=== PATIENT | male | born 1955 | race Hispanic/Latino ===

== ENCOUNTER 2018-07-04 05:51 | Emergency (ER) | payer OTHER ==
[~2018-07-04] VITALS: Ht 175.3 cm; Wt 115.7 kg
[2018-07-04] MEDS ORDERED: MECLIZINE HCL 12.5 MG TAB PO ONE (06:00)
[2018-07-04] MEDS ORDERED: SODIUM CHLORIDE 0.9% 1000ML 1,000 ML IV ONE (06:00)
[2018-07-04 06:09] LABS: BASOPHILS % 0.2 % (0.0-1.0); EOSINOPHILS # (AUTO) 0.1 (0.0-0.4); EOSINOPHILS % 1.3 % (0.0-6.0); HEMATOCRIT 39.1 % (38.2-49.6); HEMOGLOBIN 13.2 g/dL (14.0-18.0); LYMPHOCYTES # (AUTO) 1.7 (1.0-3.2); LYMPHOCYTES % 32.3 % (18.0-39.1); MEAN CORPUSCULAR HEMOGLOBIN 29.6 pg (28-32); MEAN CORPUSCULAR HGB CONC 33.8 g/dL (31-35); MEAN CORPUSCULAR VOLUME 87.7 fL (81-99); MONOCYTES # (AUTO) 0.7 (0.2-0.8); MONOCYTES % 13.7 % (4.4-11.3); NEUTROPHILS # (AUTO) 2.8 (2.1-6.9); NEUTROPHILS % 51.9 % (38.7-80.0); PLATELET COUNT 147 x10e3/uL (140-360); RED BLOOD COUNT 4.46 x10e6/uL (4.3-5.7); RED CELL DISTRIBUTION WIDTH 12.7 % (11.7-14.4)
[2018-07-04 06:28] LABS: ALANINE AMINOTRANSFERASE 22 IU/L (0-55); ALBUMIN/GLOBULIN RATIO 1.4 (0.8-2.0); ALKALINE PHOSPHATASE 56 IU/L (40-150); ANION GAP 12.8 mmol/L (8-16); BLOOD UREA NITROGEN 11 mg/dL (7-26); BUN/CREATININE RATIO 13 (6-25); CALCIUM 9.4 mg/dL (8.4-10.2); CARBON DIOXIDE 26 mmol/L (22-29); CHLORIDE 107 mmol/L (98-107); CREATINE KINASE 157 IU/L (30-200); CREATININE, SERUM 0.88 mg/dL (0.72-1.25); EST GLOMERULAR FILTRATION RATE > 60 ML/MIN (60-); GLUCOSE 176 mg/dL (74-118); POTASSIUM 3.8 mmol/L (3.5-5.1); SODIUM 142 mmol/L (136-145)
--- NOTE | 2018-07-04 07:09 | Diagnostic Imaging Report ---
History: Dizziness Comparison studies: None Technique: Axial images were obtained from the skull base to the vertex. Coronal and sagittal reconstructions obtained from the axial data. Dose modulation, iterative reconstruction, and/or weight based adjustment of the mA/kV was utilized to reduce the radiation dose to as low as reasonably achievable. Findings: Scalp/skull: No abnormalities. No fractures, blastic or lytic lesions. Extra-axial spaces: No masses. No fluid collections. Brain sulci: Appropriate for age. Ventricles: Normal in size and configuration. No hydrocephalus. Parenchyma: No abnormal densities. No masses, hemorrhage, acute or chronic cortical vascular insults. Sellar/suprasellar region: No abnormalities Craniocervical junction: Patent foramen magnum. No Chiari one malformation. IMPRESSION: No abnormalities . Signed by: DR Jamie Guaman M.D. on 07/04/2018 7:06 AM
--- NOTE | 2018-07-04 07:36 | Diagnostic Imaging Report ---
EXAMINATION: CHEST SINGLE (PORTABLE) INDICATION: \S\dizzy \[id number] \S\[id number] \S\Y COMPARISON: None FINDINGS: AP view TUBES and LINES: None. LUNGS: Lungs are well inflated. Lungs are clear. There is no evidence of pneumonia or pulmonary edema. PLEURA: No pleural effusion or pneumothorax. HEART AND MEDIASTINUM: The cardiomediastinal silhouette is unremarkable. BONES AND SOFT TISSUES: No acute osseous lesion. Soft tissues are unremarkable. UPPER ABDOMEN: No free air under the diaphragm. IMPRESSION: No acute thoracic abnormality. Signed by: DR. Timoteo Wheeler MD on 07/04/2018 7:32 AM
== END 2018-07-04 08:10 | disposition home or self-care (01) ==
LOC: ER 05:51
DX: R42 Dizziness and giddiness (principal); R11.0 Nausea; E78.5 Hyperlipidemia, unspecified
CPT/HCPCS: 36415; 70450; 71045; 80053; 82550; 82553; 84484; 85025; 93005; 99284

== ENCOUNTER 2019-05-01 11:12 | Emergency (ER) | payer OTHER ==
[~2019-05-01] VITALS: Ht 175.3 cm; Wt 115.7 kg
[2019-05-01] MEDS ORDERED: SODIUM CHLORIDE 0.9% 1000ML 1,000 ML IV SCH (11:30)
[2019-05-01] MEDS ORDERED: ASPIRIN 81 MG CHEW TAB PO ONE (11:30)
[2019-05-01] MEDS ORDERED: DIPHENHYDRAMINE HCL INJ 50 MG/ML VIAL IV ONE (12:00)
[2019-05-01] MEDS ORDERED: KETOROLAC TROMETHAMINE 30 MG/ML VIAL IV ONE (12:00)
[2019-05-01] MEDS ORDERED: METOCLOPRAMIDE HCL 10 MG/2ML VIAL IV ONE (12:00)
[2019-05-01 12:01] LABS: BASOPHILS % 0.4 % (0.0-1.0); EOSINOPHILS # (AUTO) 0.1 (0.0-0.4); EOSINOPHILS % 1.3 % (0.0-6.0); HEMOGLOBIN 13.9 g/dL (14.0-18.0); LYMPHOCYTES % 17.7 % (18.0-39.1); MEAN CORPUSCULAR HEMOGLOBIN 29.2 pg (28-32); MEAN CORPUSCULAR HGB CONC 33.1 g/dL (31-35); MEAN CORPUSCULAR VOLUME 88.2 fL (81-99); MONOCYTES # (AUTO) 0.6 (0.2-0.8); MONOCYTES % 10.6 % (4.4-11.3); NEUTROPHILS # (AUTO) 3.9 (2.1-6.9); NEUTROPHILS % 69.5 % (38.7-80.0); PLATELET COUNT 154 x10e3/uL (140-360); RED BLOOD COUNT 4.76 x10e6/uL (4.3-5.7); RED CELL DISTRIBUTION WIDTH 13.2 % (11.7-14.4)
[2019-05-01 12:11] LABS: ALANINE AMINOTRANSFERASE 19 IU/L (0-55); ALBUMIN/GLOBULIN RATIO 1.3 (0.8-2.0); ALKALINE PHOSPHATASE 49 IU/L (40-150); ANION GAP 15.1 mmol/L (8-16); BLOOD UREA NITROGEN 14 mg/dL (7-26); BUN/CREATININE RATIO 16 (6-25); CALCIUM 9.6 mg/dL (8.4-10.2); CARBON DIOXIDE 25 mmol/L (22-29); CHLORIDE 104 mmol/L (98-107); CREATINE KINASE 104 IU/L (30-200); CREATININE, SERUM 0.89 mg/dL (0.72-1.25); EST GLOMERULAR FILTRATION RATE > 60 ML/MIN (60-); GLUCOSE 134 mg/dL (74-118); POTASSIUM 4.1 mmol/L (3.5-5.1); SODIUM 140 mmol/L (136-145)
--- NOTE | 2019-05-01 13:28 | Diagnostic Imaging Report ---
History:Dizziness, headache, Comparison studies:None Technique: Axial images were obtained from the thoracic inlet. 3-D reconstructions and maximum intensity projection reformats were performed. Coronal and sagittal images reconstructed from the axial data. Intravenous contrast: 100 cc of Omnipaque 300. Dose modulation, iterative reconstruction, and/or weight based adjustment of the mA/kV was utilized to reduce the radiation dose to as low as reasonably achievable. Findings: Percentage of stenosis will be based on the NASCET criteria Aortic arch and major vessels: Patent. Nonstenotic atherosclerotic changes are. Common carotid arteries: Patent. No abnormalities. Right internal carotid artery: Patent. Nonstenotic calcified atherosclerotic plaque at the bulb and carotid siphon. 3 mm inferiorly projecting at the P-comm segment. Left internal carotid artery: Patent. Nonstenotic calcified and noncalcified atherosclerotic plaque at the bulb. Nonstenotic calcified plaque at the carotid siphon. Right vertebral artery: Patent and diminutive. Left vertebral artery: Patent dominant. Basilar artery: Patent. No abnormalities. Posterior cerebral arteries: Patent. No abnormalities. origin on the left side with hypoplastic P 1 segments. Anatomical variants: Acom: Patent . Pcoms: Patent left. Nonvisualized right. Vertebral arteries: Dominant left IMPRESSION: Cervical CTA: 1. No acute vascular abnormality. 2. Atherosclerotic changes without significant stenosis. Intracranial CTA: 1. No acute vascular abnormality. 2. Atherosclerotic changes without significant stenosis. 3. 3 mm inferiorly projecting aneurysm from the right P-comm ICA segment. Signed by: DR Jamie Guaman M.D. on 05/01/2019 1:24 PM
[2019-05-01 13:52] VITALS: BP 139/55
[2019-05-01] MEDS ORDERED: MECLIZINE HCL12.5 MG PO (13:53)
[2019-05-01] MEDS ORDERED: IOPAMIDOL 370 MG/ML 200 ML INFUS..BTL INJ ONE (17:47)
[2019-05-01] MEDS ORDERED: SODIUM CHLORIDE 0.9% 100 ML 100 ML ONE (17:47)
== END 2019-05-01 14:05 | disposition home or self-care (01) ==
LOC: ER 11:12
DX: R53.1 Weakness (principal); R42 Dizziness and giddiness; H81.13 Benign paroxysmal vertigo, bilateral
CPT/HCPCS: 36415; 70496; 70498; 80053; 82550; 82553; 84484; 85025; 93005; 99283; J1200; J1885; J2765; J7030; Q9967

== ENCOUNTER 2019-09-09 11:22 | Emergency (ER) | payer OTHER ==
[~2019-09-09] VITALS: Ht 175.3 cm; Wt 115.7 kg
[~2019-09-09 11:22] MED LIST: MECLIZINE HCL12.5 MG PO
[2019-09-09] MEDS ORDERED: IBUPROFEN 600 MG TAB PO STA (11:23)
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
[2019-09-09] MEDS ORDERED: TIZANIDINE HCL4 MG PO (13:48)
[2019-09-09 13:52] VITALS: BP 164/79
== END 2019-09-09 13:56 | disposition home or self-care (01) ==
LOC: ER 11:22
DX: S16.1XXA Strain of muscle, fascia and tendon at neck level, initial encounter (principal); S33.5XXA Sprain of ligaments of lumbar spine, initial encounter; V43.52XA Car driver injured in collision with other type car in traffic accident, initial encounter; Y92.488 Other paved roadways as the place of occurrence of the external cause; I10 Essential (primary) hypertension; E11.9 Type 2 diabetes mellitus without complications; E78.5 Hyperlipidemia, unspecified
CPT/HCPCS: 72050; 72110; 99283

== ENCOUNTER → 2019-11-11 | Outpatient (CLI) | payer OTHER ==
[~2019-11-11] MED LIST changes: +IOPAMIDOL 370 MG/ML 200 ML INFUS..BTL INJ ONE; +SODIUM CHLORIDE 0.9% 100 ML ONE; +TIZANIDINE HCL4 MG PO
[2019-11-11 11:40] LABS: BLOOD UREA NITROGEN 13 mg/dL (7-26); BUN/CREATININE RATIO 15 (6-25); CREATININE, SERUM 0.88 mg/dL (0.72-1.25); EST GLOMERULAR FILTRATION RATE > 60 ML/MIN (60-)
--- NOTE | 2019-11-12 07:25 | Diagnostic Imaging Report ---
History:Follow-up cerebral aneurysm, Comparison studies:CTA head and neck 05/01/2019 Technique: Axial images were obtained from the thoracic inlet. 3-D reconstructions and maximum intensity projection reformats were performed. Coronal and sagittal images reconstructed from the axial data. Intravenous contrast: 100 cc of Isovue 370. Dose modulation, iterative reconstruction, and/or weight based adjustment of the mA/kV was utilized to reduce the radiation dose to as low as reasonably achievable. Findings: Percentage of stenosis will be based on the NASCET criteria Aortic arch and major vessels: Patent. Nonstenotic mild atherosclerotic changes. Common carotid arteries: Patent. No abnormalities. Right internal carotid artery: Patent. Nonstenotic calcified atherosclerotic plaque at the bulb and carotid siphon. Stable 3 mm inferiorly projecting saccular aneurysm at the P-comm segment. Left internal carotid artery: Patent. Nonstenotic calcified and noncalcified atherosclerotic plaque at the bulb. Nonstenotic calcified plaque at the carotid siphon. Right vertebral artery: Patent and diminutive. Left vertebral artery: Patent dominant. Basilar artery: Patent. No abnormalities. Posterior cerebral arteries: Patent. No abnormalities. origin on the left side with hypoplastic left P 1 segment. Anatomical variants: Acom: Patent . Pcoms: Patent left. Nonvisualized right. Vertebral arteries: Dominant left IMPRESSION: Cervical CTA: 1. No acute vascular abnormality or change from previous examination. 2. Atherosclerotic changes without significant stenosis. Intracranial CTA: 1. No acute vascular abnormality or change from previous examination. 2. Atherosclerotic changes without significant stenosis. 3. Stable 3 mm inferiorly projecting aneurysm from the right P-comm ICA segment. Signed by: DR Jamie Guaman M.D. on 11/12/2019 7:22 AM
== END ==
LOC: CT 10:35
PROVIDERS: ATTEND Student in an Organized Health Care Education/Training Program
DX: I67.1 Cerebral aneurysm, nonruptured (principal)
CPT/HCPCS: 36415; 70496; 70498; 82565; 84520; J7050; Q9967

== ENCOUNTER → 2020-05-08 | Outpatient (CLI) | payer MEDICARE ==
[2020-05-08 16:08] LABS: BLOOD UREA NITROGEN 17 mg/dL (7-26); BUN/CREATININE RATIO 21 (6-25); CREATININE, SERUM 0.82 mg/dL (0.72-1.25); EST GLOMERULAR FILTRATION RATE > 60 ML/MIN (60-)
--- NOTE | 2020-05-09 07:28 | Diagnostic Imaging Report ---
Exams: Neck and intracranial CTAs History:Cerebral aneurysm Comparison studies: Neck and intracranial CTA 11/11/2019 and 05/01/2019 Technique: Axial images were obtained from the vertex through the thoracic L upon demonstration of IV contrast. Multiplanar MIP as well as 3-D volume rendered images of the [place] and neck circulation reformatted from the axial source data. Dose modulation, iterative reconstruction, and/or weight based adjustment of the mA/kV was utilized to reduce the radiation dose to as low as reasonably achievable. Intravenous contrast: 100 cc of Isovue-370. Findings: Neck CTA: If present, stenosis is calculated utilizing the NASCET method which calculates the degree of stenosis with reference to the normal lumen of the carotid artery distal to the stenosis. Aortic arch and major vessels: Mild scattered calcified plaque in the aortic arch, origins of the subclavian artery, origin of the left common carotid artery and origin of the right brachycephalic trunk without significant stenosis. Common carotid arteries: Patent, no stenosis. Carotid bulbs: Patent, no (0%) stenosis. Nonstenotic calcified plaque just below the bifurcation on the left and in the proximal ICA segment on the right. Internal carotid arteries: Patent with mild calcified plaque near the origin on the right. No other abnormalities Vertebral arteries: Patent, no abnormalities. Intracranial CTA: Anterior circulation: Internal carotid arteries: Patent with calcified plaque in the cavernous and paraophthalmic segments without significant stenosis. Unchanged inferiorly projecting wide-neck 3 mm saccular aneurysm in the right communicating segment. Anterior cerebral arteries: Patent, no proximal branch occlusion or stenosis. Middle cerebral arteries: Patent, no proximal branch occlusion or stenosis. Posterior circulation: Vertebral arteries: Patent, no abnormalities. Basilar artery: Patent, no abnormalities. Posterior cerebral arteries: Patent, no proximal branch occlusion or stenosis. Congenitally hypoplastic left P1 segment with -type MEDICAL ACCOUNTANT origin. Anatomical variants: Acom: Patent. Pcoms: Left -type MEDICAL ACCOUNTANT origin. Not visualized on the right. Vertebral arteries: Left is dominant. Incidental findings: Unchanged nonspecific small punctate calcifications in the left masseter muscle. IMPRESSION: Neck CTA: 1. No changes from the prior neck CTA of 11/11/2019. 2. Mild scattered atherosclerosis without significant stenosis. No (0%) stenosis of the carotid bulbs. Intracranial CTA: 1. No changes from the prior intracranial CTA of 11/11/2019. 2. Unchanged right ICA communicating segment 3 mm saccular aneurysm. 3. No major arterial branch occlusion or significant stenosis. Signed by: Dr. Sivakumar Phoenix M.D. on 05/09/2020 7:25 AM
--- NOTE | 2020-05-09 07:28 | Diagnostic Imaging Report ---
Exams: Neck and intracranial CTAs History:Cerebral aneurysm Comparison studies: Neck and intracranial CTA 11/11/2019 and 05/01/2019 Technique: Axial images were obtained from the vertex through the thoracic L upon demonstration of IV contrast. Multiplanar MIP as well as 3-D volume rendered images of the [place] and neck circulation reformatted from the axial source data. Dose modulation, iterative reconstruction, and/or weight based adjustment of the mA/kV was utilized to reduce the radiation dose to as low as reasonably achievable. Intravenous contrast: 100 cc of Isovue-370. Findings: Neck CTA: If present, stenosis is calculated utilizing the NASCET method which calculates the degree of stenosis with reference to the normal lumen of the carotid artery distal to the stenosis. Aortic arch and major vessels: Mild scattered calcified plaque in the aortic arch, origins of the subclavian artery, origin of the left common carotid artery and origin of the right brachycephalic trunk without significant stenosis. Common carotid arteries: Patent, no stenosis. Carotid bulbs: Patent, no (0%) stenosis. Nonstenotic calcified plaque just below the bifurcation on the left and in the proximal ICA segment on the right. Internal carotid arteries: Patent with mild calcified plaque near the origin on the right. No other abnormalities Vertebral arteries: Patent, no abnormalities. Intracranial CTA: Anterior circulation: Internal carotid arteries: Patent with calcified plaque in the cavernous and paraophthalmic segments without significant stenosis. Unchanged inferiorly projecting wide-neck 3 mm saccular aneurysm in the right communicating segment. Anterior cerebral arteries: Patent, no proximal branch occlusion or stenosis. Middle cerebral arteries: Patent, no proximal branch occlusion or stenosis. Posterior circulation: Vertebral arteries: Patent, no abnormalities. Basilar artery: Patent, no abnormalities. Posterior cerebral arteries: Patent, no proximal branch occlusion or stenosis. Congenitally hypoplastic left P1 segment with -type [employer] origin. Anatomical variants: Acom: Patent. Pcoms: Left -type [employer] origin. Not visualized on the right. Vertebral arteries: Left is dominant. Incidental findings: Unchanged nonspecific small punctate calcifications in the left masseter muscle. IMPRESSION: Neck CTA: 1. No changes from the prior neck CTA of 11/11/2019. 2. Mild scattered atherosclerosis without significant stenosis. No (0%) stenosis of the carotid bulbs. Intracranial CTA: 1. No changes from the prior intracranial CTA of 11/11/2019. 2. Unchanged right ICA communicating segment 3 mm saccular aneurysm. 3. No major arterial branch occlusion or significant stenosis. Signed by: Dr. Sivakumar Phoenix M.D. on 05/09/2020 7:25 AM
== END ==
LOC: CT 15:15
PROVIDERS: ATTEND Student in an Organized Health Care Education/Training Program
DX: I67.1 Cerebral aneurysm, nonruptured (principal)
CPT/HCPCS: 36415; 70496; 70498; 82565; 84520; J7050; Q9967

== ENCOUNTER → 2020-06-26 | Outpatient (CLI) | payer MEDICARE ==
[~2020-06-26] MED LIST changes: -SODIUM CHLORIDE 0.9% 100 ML ONE; +SODIUM CHLORIDE 0.9% 50ML 50 ML ONE
[2020-06-26 15:55] LABS: BLOOD UREA NITROGEN 15 mg/dL (7-26); BUN/CREATININE RATIO 18 (6-25); CREATININE, SERUM 0.85 mg/dL (0.72-1.25); EST GLOMERULAR FILTRATION RATE > 60 ML/MIN (60-)
--- NOTE | 2020-06-26 17:00 | Diagnostic Imaging Report ---
EXAM: CT Chest WITH contrast- Pulmonary Embolism Protocol INDICATION: Shortness of breath COMPARISON: Chest radiograph 07/04/2018 TECHNIQUE: Chest was scanned utilizing a multidetector helical scanner from the lung apex through the level of the diaphragm after administration of IV contrast. Thin section reconstructions were obtained with special concentration on the pulmonary arteries. Coronal and sagittal reformations were obtained. Pulmonary embolism protocol was performed. IV CONTRAST: 100 cc of Isovue 370 RADIATION DOSE: Total DLP: 530 mGy*cm Dose modulation, iterative reconstruction, and/or weight based adjustment of the mA/kV was utilized to reduce the radiation dose to as low as reasonably achievable. COMPLICATIONS: None FINDINGS: LINES/ TUBES: None. PULMONARY ARTERIES: No filling defect is identified within the pulmonary arteries to the segmental level. The subsegmental pulmonary arteries are not well opacified. Main pulmonary artery measures 2.8 cm in diameter. No right heart strain. LUNGS AND AIRWAYS: The central airways are patent. No focal consolidation or pulmonary edema. No suspicious pulmonary nodule. PLEURA: The pleural spaces are clear. HEART AND MEDIASTINUM: Mildly enlarged and heterogeneous appearance of the thyroid gland, possibly reflective of goiter. No supraclavicular, mediastinal, hilar, or axillary lymphadenopathy. The heart is at the upper limits of normal for size. No pericardial effusion. Scattered atherosclerotic calcifications involve the aorta, coronary arteries and proximal great vessels. UPPER ABDOMEN: No acute findings in the upper abdomen. BONES: No acute osseous injury. SOFT TISSUES: Unremarkable. IMPRESSION: No pulmonary embolism. No focal pneumonia or pulmonary edema. Mildly enlarged heterogeneous appearance of the thyroid gland, possibly reflective of goiter. Signed by: Julissa Dale MD on 06/26/2020 4:57 PM
== END ==
LOC: CT 14:44
PROVIDERS: ATTEND Internal Medicine Cardiovascular Disease
DX: R06.02 Shortness of breath (principal)
CPT/HCPCS: 36415; 71260; 82565; 84520; Q9967

== ENCOUNTER → 2020-07-21 | Outpatient (CLI) | payer MEDICARE, OTHER ==
[~2020-07-21] MED LIST changes: +ASPIRIN81 MG PO; +ATORVASTATIN CA20 MG PO; +DIOVAN160 MG PO; -IOPAMIDOL 370 MG/ML 200 ML INFUS..BTL INJ ONE; +PRESERVISION A1 EAC2 PO; -SODIUM CHLORIDE 0.9% 50ML 50 ML ONE
[2020-07-21 11:34] LABS: BASOPHILS % 0.4 % (0.0-1.0); EOSINOPHILS # (AUTO) 0.1 (0.0-0.4); EOSINOPHILS % 1.4 % (0.0-6.0); HEMOGLOBIN 13.3 g/dL (14.0-18.0); LYMPHOCYTES # (AUTO) 1.5 (1.0-3.2); LYMPHOCYTES % 22.3 % (18.0-39.1); MEAN CORPUSCULAR HEMOGLOBIN 28.7 pg (28-32); MEAN CORPUSCULAR HGB CONC 32.4 g/dL (31-35); MEAN CORPUSCULAR VOLUME 88.6 fL (81-99); MONOCYTES # (AUTO) 0.7 (0.2-0.8); MONOCYTES % 10.4 % (4.4-11.3); NEUTROPHILS # (AUTO) 4.5 (2.1-6.9); NEUTROPHILS % 65.1 % (38.7-80.0); PLATELET COUNT 159 x10e3/uL (140-360); RED BLOOD COUNT 4.63 x10e6/uL (4.3-5.7); RED CELL DISTRIBUTION WIDTH 13.3 % (11.7-14.4)
[2020-07-21 11:58] LABS: ALANINE AMINOTRANSFERASE 14 IU/L (0-55); ALBUMIN 4.1 g/dL (3.5-5.0); ALBUMIN/GLOBULIN RATIO 1.5 (0.8-2.0); ALKALINE PHOSPHATASE 50 IU/L (40-150); ANION GAP 12.5 mmol/L (8-16); BLOOD UREA NITROGEN 14 mg/dL (7-26); BUN/CREATININE RATIO 15 (6-25); CALCIUM 8.9 mg/dL (8.4-10.2); CARBON DIOXIDE 27 mmol/L (22-29); CHLORIDE 107 mmol/L (98-107); CREATININE, SERUM 0.94 mg/dL (0.72-1.25); EST GLOMERULAR FILTRATION RATE > 60 ML/MIN (60-); GLUCOSE 130 mg/dL (74-118); POTASSIUM 4.5 mmol/L (3.5-5.1); SODIUM 142 mmol/L (136-145)
== END ==
LOC: DX 06:11 → EDSTATUS 07-26 08:00
PROVIDERS: ATTEND Internal Medicine Cardiovascular Disease
DX: Z01.812 Encounter for preprocedural laboratory examination (principal); Z20.828 Contact with and (suspected) exposure to other viral communicable diseases; Z01.818 Encounter for other preprocedural examination; I47.2 Ventricular tachycardia
CPT/HCPCS: 36415; 80053; 85025; U0002

== ENCOUNTER → 2020-08-14 | Day surgery (SDC) | payer MEDICARE ==
[2020-08-09 11:31] LABS: BASOPHILS % 0.2 % (0.0-1.0); EOSINOPHILS # (AUTO) 0.1 (0.0-0.4); EOSINOPHILS % 1.2 % (0.0-6.0); HEMATOCRIT 39.8 % (38.2-49.6); LYMPHOCYTES # (AUTO) 1.3 (1.0-3.2); LYMPHOCYTES % 21.8 % (18.0-39.1); MEAN CORPUSCULAR HEMOGLOBIN 28.9 pg (28-32); MEAN CORPUSCULAR HGB CONC 32.7 g/dL (31-35); MEAN CORPUSCULAR VOLUME 88.4 fL (81-99); MONOCYTES # (AUTO) 0.6 (0.2-0.8); MONOCYTES % 9.5 % (4.4-11.3); PLATELET COUNT 162 x10e3/uL (140-360); RED CELL DISTRIBUTION WIDTH 13.3 % (11.7-14.4)
[2020-08-09 11:49] LABS: ALANINE AMINOTRANSFERASE 17 IU/L (0-55); ALBUMIN/GLOBULIN RATIO 1.4 (0.8-2.0); ALKALINE PHOSPHATASE 37 IU/L (40-150); ANION GAP 11.1 mmol/L (8-16); BLOOD UREA NITROGEN 12 mg/dL (7-26); BUN/CREATININE RATIO 14 (6-25); CARBON DIOXIDE 26 mmol/L (22-29); CHLORIDE 107 mmol/L (98-107); CREATININE, SERUM 0.83 mg/dL (0.72-1.25); EST GLOMERULAR FILTRATION RATE > 60 ML/MIN (60-); GLUCOSE 144 mg/dL (74-118); POTASSIUM 4.1 mmol/L (3.5-5.1); SODIUM 140 mmol/L (136-145)
[2020-08-14] VITALS (11 sets, daily range): BP systolic 132–145; BP diastolic 63–90
[~2020-08-14] VITALS: Ht 180.3 cm; Wt 111.1 kg
[~2020-08-14] MED LIST changes: +FENTANYL CITRATE/PF 100MCG/2 ML INJ ONE; +HEPARIN SOD/SOD CHLORIDE 2,000 ML ONE; +IOPAMIDOL 370 MG/ML 200 ML INFUS..BTL INJ ONE; +LIDOCAINE HCL 2% LOCAL 20 ML VIAL ONE; +MIDAZOLAM HCL 2 MG/2 ML VIAL ONE; +SODIUM CHLORIDE 0.9% 1000ML 1,000 ML ONE
--- NOTE | 2020-08-14 13:27 | Operative Report ---
DATE OF PROCEDURE: 08/14/2020 SURGEON: Karl Powers MD PROCEDURE INDICATION: Ventricular tachycardia. PROCEDURES PERFORMED: 1. Left heart catheterization. 2. Selective coronary angiography. 3. Moderate sedation time initial 15 minutes. PROCEDURE COMPLICATIONS: None. ESTIMATED BLOOD LOSS: Less than 15 mL. PROCEDURE SUMMARY: After consent was obtained, the patient was prepped and draped in a sterile fashion. The right radial site was locally infiltrated with 2% lidocaine. An access was obtained with anterior stick and a 5-[place] slender sheath was advanced. The aortic catheter was used to engage the left main, right coronary artery and to cross the aortic valve for hemodynamic measurements. No left ventriculogram was performed. The following findings were noted: 1. LV pressure was 152/14 with end-diastolic pressure 39. 2. Aortic pressure was 152/76. 3. Left ventriculogram was not performed. 4. Left main is large in caliber with luminal irregularities gives an LAD and circumflex. 5. LAD has luminal irregularities throughout, gives septal perforators of small caliber and two diagonals. 6. Ramus intermedius is small caliber it arises from the left main. It has luminal irregularities. 7. The left circumflex has luminal irregularities, gives a left atrial branch and two obtuse marginals. 8. The right coronary artery is dominant with luminal irregularities, gives a conus branch and RV marginal and terminal RPDA and RPLV. CONCLUSION: 1. No significant obstructive coronary artery disease. Recommend volume optimization, given elevated LVEDP. 2. Medical optimization from ventricular ectopy standpoint. EP evaluations as outpatient. Karl Powers MD AFV/MODL /[id number]
== END | disposition home or self-care (01) ==
LOC: CATH LAB 07:58
PROVIDERS: ATTEND Internal Medicine Cardiovascular Disease
DX: I47.2 Ventricular tachycardia (principal); E66.01 Morbid (severe) obesity due to excess calories; E11.8 Type 2 diabetes mellitus with unspecified complications; E78.5 Hyperlipidemia, unspecified; I10 Essential (primary) hypertension; Z01.812 Encounter for preprocedural laboratory examination; Z20.828 Contact with and (suspected) exposure to other viral communicable diseases; Z79.84 Long term (current) use of oral hypoglycemic drugs; Z79.82 Long term (current) use of aspirin; Z68.38 Body mass index [BMI] 38.0-38.9, adult; Z87.891 Personal history of nicotine dependence; Z82.49 Family history of ischemic heart disease and other diseases of the circulatory system; Z82.3 Family history of stroke
CPT/HCPCS: 36415; 80053; 85025; 93458; C1887; J2001; J2250; J3010; J7030; Q9967; U0002; 99152

== ENCOUNTER → 2020-12-21 | Outpatient (CLI) | payer MEDICARE ==
[~2020-12-21] MED LIST changes: -FENTANYL CITRATE/PF 100MCG/2 ML INJ ONE; -HEPARIN SOD/SOD CHLORIDE 2,000 ML ONE; -LIDOCAINE HCL 2% LOCAL 20 ML VIAL ONE; -MIDAZOLAM HCL 2 MG/2 ML VIAL ONE; +SODIUM CHLORIDE 0.9% 100 ML ONE; -SODIUM CHLORIDE 0.9% 1000ML 1,000 ML ONE
[2020-12-21 09:25] LABS: BLOOD UREA NITROGEN 16 mg/dL (7-26); BUN/CREATININE RATIO 18 (6-25); CREATININE, SERUM 0.88 mg/dL (0.72-1.25); EST GLOMERULAR FILTRATION RATE > 60 ML/MIN (60-)
== END ==
LOC: CT 08:46
PROVIDERS: ATTEND Student in an Organized Health Care Education/Training Program
DX: I67.1 Cerebral aneurysm, nonruptured (principal)
CPT/HCPCS: 36415; 70496; 82565; 84520; J7050; Q9967

== ENCOUNTER 2021-05-02 15:32 | Emergency (ER) | payer MEDICARE ==
[~2021-05-02] VITALS: Ht 170.2 cm; Wt 108.9 kg
[~2021-05-02 15:32] MED LIST changes: -IOPAMIDOL 370 MG/ML 200 ML INFUS..BTL INJ ONE; -SODIUM CHLORIDE 0.9% 100 ML ONE
[2021-05-02] MEDS ORDERED: CASIRIVIMAB/IMDEVIMAB 10 ML VIAL IV ONE (16:15)
[2021-05-02] MEDS ORDERED: CASIRIVIMAB/IMDEVIMAB 600 ML in SODIUM CHLORIDE 0.9% 100 ML IV ONE (16:30)
[2021-05-02 23:07] VITALS: BP 132/85
[2021-05-04] MEDS ORDERED: VITAMIN B-121000 MCG PO (17:36)
[2021-05-04] MEDS ORDERED: AMIODARONE HCL200 MG PO (17:36)
[2021-05-04] MEDS ORDERED: ETODOLAC400 M1 PO (17:36)
[2021-05-04] MEDS ORDERED: ATORVASTATIN CA20 MG PO (17:36)
[2021-05-04] MEDS ORDERED: METFORMIN HCL500 MG PO (17:36)
[2021-05-04] MEDS ORDERED: METOPROLOL SUCC25 MG PO (17:36)
== END 2021-05-02 23:11 | disposition home or self-care (01) ==
LOC: ER 17:04
DX: R05 Cough (principal); U07.1 COVID-19; I10 Essential (primary) hypertension; E11.9 Type 2 diabetes mellitus without complications; E78.5 Hyperlipidemia, unspecified
CPT/HCPCS: 99283; J7050

== ENCOUNTER → 2021-05-04 | Day surgery (SDC) | payer MEDICARE ==
[~2021-05-04] VITALS: Ht 170.2 cm; Wt 108.9 kg
[~2021-05-04] MED LIST changes: +AMIODARONE HCL200 MG PO; +ETODOLAC400 M1 PO; +FENTANYL CITRATE/PF 100MCG/2 ML INJ ONE; +GENTAMICIN SULFATE 40 MG/ML 2 ML VIAL ONE; +IOPAMIDOL 300MG/ML 50ML INFUS..BTL IV ONE; +LIDOCAINE HCL 2% LOCAL 20 ML VIAL ONE; +METFORMIN HCL500 MG PO; +METOPROLOL SUCC25 MG PO; +MIDAZOLAM HCL 2 MG/2 ML VIAL ONE; +SODIUM CHLORIDE 0.9% 1000ML 2,000 ML ONE; +SODIUM CHLORIDE 0.9% 250ML 250 ML ONE; +SODIUM CHLORIDE 0.9% 500ML 500 ML ONE; +VITAMIN B-121000 MCG PO; +Vancomycin IV 1 GM VIAL ONE
[2021-05-04 18:05] LABS: BASOPHILS % 0.3 % (0.0-1.0); EOSINOPHILS # (AUTO) 0.1 (0.0-0.4); EOSINOPHILS % 2.1 % (0.0-6.0); HEMATOCRIT 39.1 % (38.2-49.6); HEMOGLOBIN 12.8 g/dL (14.0-18.0); LYMPHOCYTES # (AUTO) 1.1 (1.0-3.2); LYMPHOCYTES % 32.5 % (18.0-39.1); MEAN CORPUSCULAR HEMOGLOBIN 29.2 pg (28-32); MEAN CORPUSCULAR HGB CONC 32.7 g/dL (31-35); MEAN CORPUSCULAR VOLUME 89.1 fL (81-99); MONOCYTES # (AUTO) 0.5 (0.2-0.8); MONOCYTES % 15.8 % (4.4-11.3); NEUTROPHILS # (AUTO) 1.6 (2.1-6.9); PLATELET COUNT 122 x10e3/uL (140-360); RED BLOOD COUNT 4.39 x10e6/uL (4.3-5.7); RED CELL DISTRIBUTION WIDTH 13.2 % (11.7-14.4)
[2021-05-04 18:15] LABS: INR 0.98; PROTHROMBIN TIME 13.2 seconds (11.9-14.5)
[2021-05-04 18:22] LABS: ANION GAP 13.6 mmol/L (8-16); CALCIUM 8.3 mg/dL (8.4-10.2); CREATININE, SERUM 0.8 mg/dL (0.72-1.25); POTASSIUM 3.6 mmol/L (3.5-5.1)
[2021-05-04 20:00] VITALS: BP 147/75
[2021-05-04 20:15] VITALS: BP 145/100
[2021-05-04 20:30] VITALS: BP 172/85
== END | disposition home or self-care (01) ==
LOC: CATH LAB 07:00
PROVIDERS: ATTEND Internal Medicine
DX: I44.2 Atrioventricular block, complete (principal); Z01.812 Encounter for preprocedural laboratory examination; U07.1 COVID-19; R42 Dizziness and giddiness
CPT/HCPCS: 33208; 33286; 36415; 71045; 80048; 85025; 85610; C1769; C1785; C1898 ×2; J1580; J2001; J2250; J3010; J3370; J7030; J7040; J7050; Q9967; 99152; 99153

== ENCOUNTER 2021-08-02 07:32 | Emergency (ER) | payer MEDICARE ==
[~2021-08-02] VITALS: Ht 170.2 cm; Wt 108.9 kg
[~2021-08-02 07:32] MED LIST changes: -FENTANYL CITRATE/PF 100MCG/2 ML INJ ONE; -GENTAMICIN SULFATE 40 MG/ML 2 ML VIAL ONE; -IOPAMIDOL 300MG/ML 50ML INFUS..BTL IV ONE; -LIDOCAINE HCL 2% LOCAL 20 ML VIAL ONE; -MIDAZOLAM HCL 2 MG/2 ML VIAL ONE; -SODIUM CHLORIDE 0.9% 1000ML 2,000 ML ONE; -SODIUM CHLORIDE 0.9% 250ML 250 ML ONE; -SODIUM CHLORIDE 0.9% 500ML 500 ML ONE; -Vancomycin IV 1 GM VIAL ONE
[2021-08-02] MEDS ORDERED: SODIUM CHLORIDE 0.9% 1000ML 1,000 ML IV STA (07:52)
[2021-08-02 08:00] LABS: BASOPHILS % 0.2 % (0.0-1.0); EOSINOPHILS # (AUTO) 0.1 (0.0-0.4); EOSINOPHILS % 0.7 % (0.0-6.0); HEMATOCRIT 44.9 % (38.2-49.6); HEMOGLOBIN 14.9 g/dL (14.0-18.0); LYMPHOCYTES # (AUTO) 0.8 (1.0-3.2); LYMPHOCYTES % 7.1 % (18.0-39.1); MEAN CORPUSCULAR HEMOGLOBIN 29.6 pg (28-32); MEAN CORPUSCULAR HGB CONC 33.2 g/dL (31-35); MEAN CORPUSCULAR VOLUME 89.3 fL (81-99); MONOCYTES # (AUTO) 1.2 (0.2-0.8); MONOCYTES % 11.6 % (4.4-11.3); NEUTROPHILS # (AUTO) 8.5 (2.1-6.9); NEUTROPHILS % 79.7 % (38.7-80.0); PLATELET COUNT 145 x10e3/uL (140-360); RED BLOOD COUNT 5.03 x10e6/uL (4.3-5.7); RED CELL DISTRIBUTION WIDTH 13.1 % (11.7-14.4)
[2021-08-02 08:19] LABS: ALBUMIN 3.8 g/dL (3.5-5.0); ALBUMIN/GLOBULIN RATIO 1.2 (0.8-2.0); ANION GAP 16.4 mmol/L (8-16); CALCIUM 8.4 mg/dL (8.4-10.2); CREATININE, SERUM 0.99 mg/dL (0.72-1.25); POTASSIUM 3.4 mmol/L (3.5-5.1)
[2021-08-02] MEDS ORDERED: IOPAMIDOL 370 MG/ML 200 ML INFUS..BTL INJ ONE (08:37)
[2021-08-02] MEDS ORDERED: SODIUM CHLORIDE 0.9% 50ML 50 ML ONE (08:37)
[2021-08-02 10:13] LABS: COLOR,URINE YELLOW (YELLOW)
[2021-08-02 10:14] LABS: CLARITY,URINE SL CLOUDY (CLEAR); KETONES,URINE 2+ (NEGATIVE); LEUKOCYTE ESTERASE ,URINE NEGATIVE (NEGATIVE); NITRITE,URINE NEGATIVE (NEGATIVE); PROTEIN,URINE DIPSTICK NEGATIVE (NEGATIVE); URINE UROBILINOGEN 0.2 mg/dL (0.2 - 1)
[2021-08-02 10:17] LABS: BACTERIA,URINE FEW /HPF; EPITHELIAL CELLS,URINE FEW /LPF; RBC,URINE 0-5 /HPF (0-5); WBC,URINE (MAN) 0-5 /HPF (0-5)
[2021-08-02 10:34] VITALS: BP 124/82
== END 2021-08-02 10:38 | disposition home or self-care (01) ==
LOC: ER 08:11
DX: R19.7 Diarrhea, unspecified (principal); R10.9 Unspecified abdominal pain; E11.65 Type 2 diabetes mellitus with hyperglycemia; I10 Essential (primary) hypertension; E78.5 Hyperlipidemia, unspecified; Z95.0 Presence of cardiac pacemaker
CPT/HCPCS: 36415; 74177; 80053; 81001; 85025; 99284; J7030; Q9967

== ENCOUNTER 2021-08-16 07:51 | Emergency (ER) | payer MEDICARE, OTHER ==
[~2021-08-16] VITALS: Ht 170.2 cm; Wt 108.9 kg
[2021-08-16] MEDS ORDERED: IBUPROFEN 600 MG TAB PO ONE (09:00)
[2021-08-16] MEDS ORDERED: IBUPROFEN400 MG PO (09:24)
== END 2021-08-16 09:38 | disposition home or self-care (01) ==
LOC: ER 08:15
DX: S20.219A Contusion of unspecified front wall of thorax, initial encounter (principal); R07.89 Other chest pain; W01.0XXA Fall on same level from slipping, tripping and stumbling without subsequent striking against object, initial encounter; Y93.01 Activity, walking, marching and hiking; Y92.008 Other place in unspecified non-institutional (private) residence as the place of occurrence of the external cause; I10 Essential (primary) hypertension; E11.9 Type 2 diabetes mellitus without complications; E78.5 Hyperlipidemia, unspecified
CPT/HCPCS: 71046; 99283

== ENCOUNTER 2022-03-31 14:03 | Emergency (ER) | payer MEDICARE ==
[~2022-03-31] VITALS: Ht 170.2 cm; Wt 108.9 kg
[~2022-03-31 14:03] MED LIST changes: +IBUPROFEN400 MG PO
== END 2022-03-31 15:45 | disposition home or self-care (01) ==
LOC: ER 14:09
DX: R05.9 Cough, unspecified (principal); Z20.822 Contact with and (suspected) exposure to COVID-19; Z95.0 Presence of cardiac pacemaker; Z86.16 Personal history of COVID-19
CPT/HCPCS: 0223U; 36415; 99283

== ENCOUNTER 2024-08-08 07:33 | Emergency (ER) | payer MEDICARE ==
[~2024-08-08] VITALS: Ht 177.8 cm; Wt 104.3 kg
[2024-08-08 07:55] VITALS: PULSE 61; RESP 12; TEMP 97.6; O2SAT 100
[2024-08-08 08:48] LABS: BASOPHILS % 0.6 % (0.0-1.0); EOSINOPHILS # (AUTO) 0.1 (0.0-0.4); EOSINOPHILS % 1.4 % (0.0-6.0); HEMATOCRIT 41.1 % (38.2-49.6); HEMOGLOBIN 13.3 g/dL (14.0-18.0); LYMPHOCYTES # (AUTO) 1.4 (1.0-3.2); LYMPHOCYTES % 19.3 % (18.0-39.1); MEAN CORPUSCULAR HEMOGLOBIN 29.4 pg (28-32); MEAN CORPUSCULAR HGB CONC 32.4 g/dL (31-35); MEAN CORPUSCULAR VOLUME 90.9 fL (81-99); MONOCYTES # (AUTO) 0.8 (0.2-0.8); MONOCYTES % 11.6 % (4.4-11.3); NEUTROPHILS # (AUTO) 4.7 (2.1-6.9); NEUTROPHILS % 66.5 % (38.7-80.0); PLATELET COUNT 172 x10e3/uL (140-360); RED BLOOD COUNT 4.52 x10e6/uL (4.3-5.7); RED CELL DISTRIBUTION WIDTH 12.8 % (11.7-14.4); WHITE BLOOD COUNT 7.06 x10e3/uL (4.8-10.8)
[2024-08-08 09:08] LABS: ALBUMIN/GLOBULIN RATIO 1.3 (0.8-2.0); ANION GAP 13.2 mmol/L (8-16); BILIRUBIN,TOTAL 0.5 mg/dL (0.2-1.2); CALCIUM 9.7 mg/dL (8.4-10.2); CREATININE, SERUM 0.82 mg/dL (0.72-1.25); POTASSIUM 4.2 mmol/L (3.5-5.1); TOTAL PROTEIN 7.2 g/dL (6.5-8.1)
[2024-08-08 10:01] LABS: CLARITY,URINE SL CLOUDY (CLEAR); COLOR,URINE YELLOW (YELLOW)
[2024-08-08 10:02] LABS: BILIRUBIN,URINE NEGATIVE (NEGATIVE); GLUCOSE, URINE NEGATIVE (NEGATIVE); KETONES,URINE NEGATIVE (NEGATIVE); LEUKOCYTE ESTERASE ,URINE NEGATIVE (NEGATIVE); NITRITE,URINE NEGATIVE (NEGATIVE); PH,URINE 6.5 (5 - 7); PROTEIN,URINE DIPSTICK NEGATIVE (NEGATIVE); URINE UROBILINOGEN 2 mg/dL (0.2 - 1)
[2024-08-08 10:16] LABS: WBC,URINE (MAN) 0-5 /HPF (0-5)
[2024-08-08 10:17] LABS: EPITHELIAL CELLS,URINE RARE /LPF
[2024-08-08] MEDS ORDERED: MECLIZINE HCL12.5 MG PO (10:24)
== END 2024-08-08 10:00 | disposition home or self-care (01) ==
LOC: ER 07:40
DX: R42 Dizziness and giddiness (principal); R11.0 Nausea; R10.9 Unspecified abdominal pain; M79.644 Pain in right finger(s); I10 Essential (primary) hypertension; E11.9 Type 2 diabetes mellitus without complications; E78.5 Hyperlipidemia, unspecified; R94.31 Abnormal electrocardiogram [ECG] [EKG]; Z95.810 Presence of automatic (implantable) cardiac defibrillator
CPT/HCPCS: 36415; 70450; 71045; 80053; 81001; 83880; 84484; 85025; 93005; 99284